=== PATIENT | female | born 1990 | race Caucasian/White ===

== ENCOUNTER 2017-07-23 14:19 | Emergency (ER) | payer OTHER ==
[~2017-07-23] VITALS: Ht 162.6 cm; Wt 61.4 kg
[~2017-07-23 14:19] MED LIST: AMOXICILLIN; IBU600 MG PO; LORTAB 5/500 501 TAB PO; NO HOME MEDICATIONS; PERCOCET 325 MG1 TA2 PO
[2017-07-23 14:25] VITALS: TEMP 97.5
[2017-07-23] MEDS ORDERED: CEPHALEXIN500 M1 PO (14:28)
[2017-07-23] MEDS ORDERED: REGLAN 10MG10 MG/TAB PO (15:29)
[2017-07-23 15:37] LABS: HEMATOCRIT 46.2 % (37.0-47.0); HEMOGLOBIN 16.1 g/dl (12.5-16.0); MEAN CELL VOLUME 89 fl (80.0-100.0); MEAN CORPUSCULAR HEMOGLOBIN 31 pg (27.0-31.0); MEAN CORPUSCULAR HGB CONC 35 g/dl (33.0-37.0); MEAN PLATELET VOLUME 9.7 fl (7.4-10.4); PLATELET COUNT 362 K/mm3 (130-400); RED BLOOD COUNT 5.22 M/mm3 (4.10-5.30); REDCELL DISTRIBUTION WIDTH-CV 12.6 % (11.5-14.5); WHITE BLOOD COUNT 17.8 K/mm3 (4.8-10.8)
[2017-07-23 15:41] LABS: ADD PATHOLOGY DIFF REVIEW NO
[2017-07-23 15:42] LABS: PH 5 (5-8); SQUAMOUS EPITHELIAL 0-2 /hpf; URINE APPEARANCE Hazy; URINE BACTERIA Rare /hpf; URINE BILIRUBIN Negative (NEGATIVE); URINE BLOOD Negative (NEGATIVE); URINE COLOR Amber; URINE GLUCOSE Negative (NEGATIVE); URINE KETONE 2+ (NEGATIVE); URINE RBC 0-2 /hpf; URINE UROBILINOGEN Negative (NEGATIVE); URINE WBC 0-2 /hpf
[2017-07-23 15:49] LABS: ALBUMIN 4.6 gm/dL (3.5-5.0); BILIRUBIN,TOTAL 1.1 mg/dL (0.0-1.0); CALCIUM 9.5 mg/dL (8.4-10.2); CREATININE, serum 0.67 mg/dL (0.52-1.25); TOTAL PROTEIN 8.2 gm/dL (6.4-8.2)
[2017-07-23 16:00] LABS: BAND 12 % (0-10); NEUTROPHILS 84 % (42.0-75.2); PLATELET ESTIMATE NORMAL (NORMAL); TOTAL CELLS COUNTED 100
[2017-07-23 17:02] VITALS: BP 92/53; PULSE 84
== END 2017-07-23 17:22 | disposition home or self-care (01) ==
LOC: COL.ER 14:19
PROVIDERS: Emergency Medicine
DX: O21.9 Vomiting of pregnancy, unspecified (principal); O26.892 Other specified pregnancy related conditions, second trimester; R19.7 Diarrhea, unspecified; Z3A.16 16 weeks gestation of pregnancy; Z98.890 Other specified postprocedural states
CPT/HCPCS: J2765; J7030

== ENCOUNTER 2018-01-05 00:55 | Outpatient (CLI) | payer BC ==
[~2018-01-05] VITALS: Ht 162.6 cm; Wt 72.7 kg
[~2018-01-05 00:55] MED LIST changes: +CEPHALEXIN500 M1 PO; +REGLAN 10MG10 MG/TAB PO
[2018-01-05 01:30] VITALS: BP 126/73; PULSE 69; TEMP 97.7
[2018-01-05 02:02] VITALS: BP 133/78; PULSE 72
== END 2018-01-05 02:15 | disposition home or self-care (01) ==
LOC: LDRO 00:55
DX: O26.893 Other specified pregnancy related conditions, third trimester (principal); Z3A.39 39 weeks gestation of pregnancy

== ENCOUNTER 2018-01-06 21:35 | Inpatient (IN) | payer BC ==
[~2018-01-06] VITALS: Ht 162.6 cm; Wt 74.1 kg
[2018-01-06 22:30] VITALS: BP 134/85; PULSE 103; TEMP 97.7
[2018-01-06 23:12] LABS: BASO # 0.1 (0.0-0.2); BASO % 0.4 % (0.0-2.0); EOS # 0.1 (0.0-0.7); EOS % 0.4 % (0-4.0); GRAN # 11.3 (1.4-6.5); HEMOGLOBIN 12.5 g/dl (12.5-16.0); LYMPH # 3.1 (1.2-3.4); LYMPH % 19.9 % (20.0-51.0); MEAN CELL VOLUME 91 fl (80.0-100.0); MEAN CORPUSCULAR HEMOGLOBIN 32 pg (27.0-31.0); MEAN CORPUSCULAR HGB CONC 35 g/dl (33.0-37.0); MEAN PLATELET VOLUME 11.4 fl (7.4-10.4); MONO # 1.1 (0.1-0.6); MONO % 6.7 % (1.7-9.3); PLATELET COUNT 271 K/mm3 (130-400); RED BLOOD COUNT 3.92 M/mm3 (4.10-5.30); REDCELL DISTRIBUTION WIDTH-CV 12.7 % (11.5-14.5)
[2018-01-06 23:20] VITALS: BP 140/92; PULSE 70
[2018-01-06 23:29] LABS: HEMATOCRIT 35.7 % (37.0-47.0)
[2018-01-06 23:35] VITALS: BP 125/65; PULSE 82
[2018-01-06 23:48] VITALS: BP 134/85; PULSE 103; TEMP 97.7
[2018-01-07] VITALS (21 sets, daily range): BP systolic 106–148; BP diastolic 55–87; PULSE 59–102; TEMP 97.4–98.3
[2018-01-08 00:45] VITALS: BP 112/64; PULSE 65
[2018-01-08 07:45] VITALS: BP 112/67; PULSE 63; TEMP 97.7
[2018-01-08 16:36] VITALS: BP 117/69; PULSE 59; TEMP 97.7
[2018-01-08] MEDS ORDERED: MOTRIN 600600 MG/TAB PO (16:50)
== END 2018-01-08 20:30 | disposition home or self-care (01) | DRG 775 ==
LOC: LDRO 21:35 → OB 22:20 → LDR 22:20 → OB 01-07 06:00
PROVIDERS: Obstetrics & Gynecology
PROC: 10E0XZZ Delivery of Products of Conception, External Approach (ICD-10-PCS; principal; 2018-01-06)
PROC: 0UQMXZZ Repair Vulva, External Approach (ICD-10-PCS; 2018-01-06)
DX: O69.81X0 Labor and delivery complicated by cord around neck, without compression, not applicable or unspecified (principal); O70.0 First degree perineal laceration during delivery; O99.824 Streptococcus B carrier state complicating childbirth; Z3A.39 39 weeks gestation of pregnancy; Z37.0 Single live birth
CPT/HCPCS: J2540; J7120